=== PATIENT | female | born 1995 | race Caucasian/White ===

== ENCOUNTER → 2020-09-01 16:20 | Outpatient (BNVA) | payer MEDICARE, MEDICAID, SELFPAY | PROVIDERS: Family Provider Nurse Practitioner; PCP Nurse Practitioner Family; Visit Provider Nurse Practitioner Family | DX: Z11.59 Encounter for screening for other viral diseases (principal); Z20.828 Contact with and (suspected) exposure to other viral communicable diseases; J22 Unspecified acute lower respiratory infection | CPT/HCPCS: 87635 ==

== ENCOUNTER 2020-11-10 12:58 | Emergency (ER) | payer MEDICARE, MEDICAID, SELFPAY ==
[2020-11-10 13:02] VITALS: BP 104/71; PULSE 61; RESP 16; TEMP 36.6; O2SAT 97; BMI 37.6
--- NOTE | 2020-11-10 15:35 | XR_ITS ---
WS: [id number] KUMonica, 11/10/2020 Clinical Data: Vomiting Comparison: None. Findings: No abnormal intraabdominal masses or calcifications are seen. There is no dilatated small bowel or ev idence of obstruction. There is a moderate amount of fecal material throughout the colon. XR/XR KUB portable [id number] Impression: Moderate amount of fecal material in the colon.
--- NOTE | 2020-11-10 15:37 | W.ED.NECK ---
HPI - Neck Pain/Injury General: Chief Complaint: Neck Pain/Injury Stated Complaint: back pain/vomiting Time Seen by Provider: 11/10/20 15:30 Source: patient, family, RN notes reviewed and old records reviewed Mode of arrival: ambulatory Limitations: no limitations History of Present Illness: HPI Narrative: This patient presents to the emergency department is a 24-year-old female with complaint of nausea vomiting for the past 3 days denies diarrhea denies any significant abdominal pain. Patient says for the past days has had significant musculoskeletal type pain in the posterior neck. So much so that she was seen at [facility] in [place] yesterday and did receive a pain shot. Patient stated only helped her neck pain for throughout the night. But now significant pain again and still nauseated. Patient states that she has had no fever. We will do medical evaluation treat as needed. complaint: neck pain and upper back pain Onset (ago): day(s) Radiation: occiput Severity: mild and similar to prior neck pain Relieving factors: none Associated symptoms: Reports nausea; Denies headache(s) Review of Systems General: Reports: 10 or more systems reviewed and unremarkable except in HPI and below Const: Denies: fever(s), chills, body aches, change in appetite, fatigue or malaise Eyes: Denies: change in vision, eye discomfort, eye discharge or eye redness ENMT: Denies: throat pain, odynophagia or mouth pain Card: Denies: chest pain, palpitations, irregular heart rhythm or edema Resp: Denies: dyspnea, productive cough, non-productive cough, wheezing, stridor or pain on inspiration GI: Reports: nausea and vomiting; Denies: abdominal pain : Denies: flank pain, difficulty voiding or dysuria Musc: Reports: neck pain and back pain; Denies: extremity pain, extremity swelling or joint swelling Skin/Breast: Denies: rash, pruritus or erythema Neuro: Denies: headache(s), numbness in extremities, weakness in extremities or sensory changes Psych: Denies: anxiety or depression Endo: Denies: polyuria or polydipsia PFS ED PFSH: Medical History Close exposure to 2019 novel coronavirus Lower respiratory infection Family History Other CAD (coronary artery disease) Cancer Diabetes Social History Smoking and tobacco status: current some day smoker Alcohol intake: current Alcohol intake frequency: holidays/special occasions only Physical Exam Const: COMMON NORMALS: no acute distress, average body habitus, patient oriented x3, no limitations, healthy appearing, alert and well nourished HENMT: COMMON NORMALS: normocephalic, atraumatic, hearing grossly normal bilaterally, external ears normal, EAC's normal, TM's normal bilaterally, Normal external nose present, Normal nasal mucous membranes and turbinates present, moist oral mucous membranes, oropharynx normal, dentition normal and gingiva normal HEAD & SCALP: normocephalic and atraumatic NOSE: Normal external nose present and Normal nasal mucous membranes and turbinates present EXTERNAL EAR: Yes external ears normal EXTERNAL AUDITORY CANAL: EAC's normal TYMPANIC MEMBRANE: TM's normal bilaterally Neck/C-Spine: COMMON NORMALS: full ROM, no lymphadenopathy, supple, no meningeal signs, no JVD, Thyroid normal and No carotid bruits GENERAL: Yes normal visual inspection THYROID: Thyroid normal CERVICAL SPINE: Yes Paracervical muscle tenderness NECK IMAGES: 1. Tenderness on palpation only full range of motion. 2. Tender to palpation only full range of motion without difficulty. Cardio: COMMON NORMALS: no JVD Neuro: COMMON NORMALS: patient oriented x3 SENSORIUM/ORIENTATION: Yes alert MENINGEAL SIGNS: Yes no meningeal signs Course Vital Signs: Vital signs: Vital Signs Temperature 97.9 F 11/10/20 13:02 Pulse Rate 62 11/10/20 17:03 Respiratory Rate 16 11/10/20 13:02 Blood Pressure 111/72 11/10/20 17:03 Pulse Oximetry 100 11/10/20 17:03 MDM - Neck Pain/Injury Differential Diagnosis: Neck Differential Diagnosis: Likely disc disorder of cervical region, torticollis and strain of neck muscle Medical Records: Attestation: I reviewed the patient's medical records. Lab Data: Attestation: I reviewed the patient's lab results. Labs: Lab Results 11/10/20 11/10/20 11/10/20 Range/Units 15:55 15:55 15:55 WBC 7.5 (4.0-10.0) 10^3/ uL RBC 4.98 (4.1-5.3) 10^6/u L Hgb 14.4 (11.5-15.3) g/dL Hct 44.3 (37.0-47.0) % MCV 89.0 (81-99) fL MCH 28.9 (28.0-34.0) pg MCHC 32.5 (30.0-36.0) g/dL RDW 13.3 (12.1-15.1) % Plt Count 267 (130-400) 10^3/c mm MPV 9.2 (7.4-10.4) fL Neut % (Auto) 66.5 % Lymph % (Auto) 24.1 % [place] % (Auto) 6.7 % Eos % (Auto) 1.5 % Baso % (Auto) 1.1 % Neut # (Auto) 4.96 (1.8-7.7) 10^3/u L Lymph # (Auto) 1.8 (0.8-4.8) 10^3/u L [place] # (Auto) 0.5 (0.2-0.9) 10^3/u L Eos # (Auto) 0.1 (0.0-0.8) 10^3/u L Baso # (Auto) 0.1 (0.0-0.1) 10^3/u L Nucleated RBC % (a uto) 0 % Nucleated RBCs # 0.0 /100WBC Sodium 140 (136-145) mmol/L Potassium 4.0 (3.5-5.1) mmol/L Chloride 103 (98-107) mmol/L Carbon Dioxide 27 (22-29) mmol/L Anion Gap 14.0 (5-19) BUN 14 (6-20) mg/dL Creatinine 0.9 (0.5-0.9) mg/dL GFR Calculation 76.9 L (90-130) mL/min Glucose 83 (65-115) mg/dL Calculated Osmolal ity 290 (285-295) mOsm/k g Calcium 9.3 (8.5-10.5) mg/dL Total Bilirubin 0.3 (0.15-1.2) mg/dL AST 20 (0-32) U/L ALT 22 (0-33) U/L Alkaline Phosphata se 88 (35-105) IU/L C-Reactive Protein 7.4 H (0.0-4.9) mg/L Total Protein 7.2 (6.6-8.7) g/dL Albumin 4.3 (3.5-5.2) g/dL Globulin 2.9 (1.3-4.6) g/dL Lipase 29 (13-60) U/L HCG, Qual Negative (Negative) Urine Color (Yellow) Urine Appearance (CLEAR) Urine pH (5-7) Ur Specific Gravit y (1.005-1.030) Urine Protein (Negative) Urine Glucose (UA) (Normal) Urine Ketones (Negative) Urine Blood (Negative) Urine Nitrate (Negative) Urine Bilirubin (Negative) Urine Urobilinogen (Negative) mg/dL Ur Leukocyte Jyoti ase (Negative) Urine RBC (0-2) /hpf Urine WBC (0-5) /hpf Ur Squamous Epith Cells (0-5) /hpf Amorphous Sediment Urine Bacteria (NONE) /hpf Urine Opiates Scre en (Negative) ng/mL Ur Barbiturates Sc reen (Negative) ng/mL Ur Phencyclidine S crn (Negative) ng/mL Ur Amphetamines Sc reen (Negative) ng/mL U Benzodiazepines Scrn (Negative) ng/mL Urine Cocaine Scre en (Negative) ng/mL U Marijuana (THC) Screen (Negative) ng/mL 11/10/20 11/10/20 11/10/20 Range/Units 17:04 17:04 17:04 WBC (4.0-10.0) 10^3/ uL RBC (4.1-5.3) 10^6/u L Hgb (11.5-15.3) g/dL Hct (37.0-47.0) % MCV (81-99) fL MCH (28.0-34.0) pg MCHC (30.0-36.0) g/dL RDW (12.1-15.1) % Plt Count (130-400) 10^3/c mm MPV (7.4-10.4) fL Neut % (Auto) % Lymph % (Auto) % [place] % (Auto) % Eos % (Auto) % Baso % (Auto) % Neut # (Auto) (1.8-7.7) 10^3/u L Lymph # (Auto) (0.8-4.8) 10^3/u L [place] # (Auto) (0.2-0.9) 10^3/u L Eos # (Auto) (0.0-0.8) 10^3/u L Baso # (Auto) (0.0-0.1) 10^3/u L Nucleated RBC % (a uto) % Nucleated RBCs # /100WBC Sodium (136-145) mmol/L Potassium (3.5-5.1) mmol/L Chloride (98-107) mmol/L Carbon Dioxide (22-29) mmol/L Anion Gap (5-19) BUN (6-20) mg/dL Creatinine (0.5-0.9) mg/dL GFR Calculation (90-130) mL/min Glucose (65-115) mg/dL Calculated Osmolal ity (285-295) mOsm/k g Calcium (8.5-10.5) mg/dL Total Bilirubin (0.15-1.2) mg/dL AST (0-32) U/L ALT (0-33) U/L Alkaline Phosphata se (35-105) IU/L C-Reactive Protein (0.0-4.9) mg/L Total Protein (6.6-8.7) g/dL Albumin (3.5-5.2) g/dL Globulin (1.3-4.6) g/dL Lipase (13-60) U/L HCG, Qual Negative (Negative) Urine Color Yellow (Yellow) Urine Appearance Hazy A (CLEAR) Urine pH 5 (5-7) Ur Specific Gravit y 1.015 (1.005-1.030) Urine Protein Neg (Negative) Urine Glucose (UA) Norm (Normal) Urine Ketones Negative (Negative) Urine Blood Neg (Negative) Urine Nitrate Negative (Negative) Urine Bilirubin Neg (Negative) Urine Urobilinogen Norm (Negative) mg/dL Ur Leukocyte Jyoti ase Negative (Negative) Urine RBC 0-4 H (0-2) /hpf Urine WBC None (0-5) /hpf Ur Squamous Epith Cells 15-25 H (0-5) /hpf Amorphous Sediment Not Reportable Urine Bacteria 1+ H (NONE) /hpf Urine Opiates Scre en Negative (Negative) ng/mL Ur Barbiturates Sc reen Negative (Negative) ng/mL Ur Phencyclidine S crn Negative (Negative) ng/mL Ur Amphetamines Sc reen Negative (Negative) ng/mL U Benzodiazepines Scrn Negative (Negative) ng/mL Urine Cocaine Scre en Negative (Negative) ng/mL U Marijuana (THC) Screen Positive H (Negative) ng/mL Imaging Data^: KUB: Attestation: I personally reviewed and interpreted this imaging study as follows: My impression: Constipation Radiologist's impression: mpression: Moderate amount of fecal material in the colon. Discharge Plan Discharge Clinical Impression: Constipation, Strain of neck muscle Condition: Stable Prescriptions: New diclofenac potassium 50 mg tablet 50 mg PO Q12H PRN (Reason: pain) Qty: 20 RF: 0 No Action estradiol 1 mg Tablet 1 mg PO DAILY@07 RF: 0 Discharge Orders: Discharge ED (Routine); Ordered 11/10/20 Ordered By: Young Valero Discharge Diet: Advance as tolerated Discharge Activity: Resume usual activity Patient Instructions: Constipation - Adult, Cervical Sprain (ED) Activity Restrictions/Additional Instructions: Encourage p.o. fluids. Take medications as instructed. Follow-up with your primary care physician for any additional pain medications. Kmol-zuv-rhstdvo MiraLAX as needed for constipation. Coding Level of Care Code ED [employer] for [employer] Fwd Exam Expanded Problem Focused
[2020-11-10 15:41] VITALS: BP 136/72; PULSE 59; O2SAT 97; O2SAT 99
[2020-11-10 16:09] LABS: Basophils # 0.1 10^3/uL (0.0-0.1); Basophils % 1.1 %; Eosinophils # 0.1 10^3/uL (0.0-0.8); Eosinophils % 1.5 %; Hematocrit 44.3 % (37.0-47.0); Hemoglobin 14.4 g/dL (11.5-15.3); Lymphocytes # 1.8 10^3/uL (0.8-4.8); Lymphocytes % 24.1 %; Mean Corpuscular HGB Conc 32.5 g/dL (30.0-36.0); Mean Corpuscular Hemoglobin 28.9 pg (28.0-34.0); Mean Platelet Volume 9.2 fL (7.4-10.4); Monocytes # 0.5 10^3/uL (0.2-0.9); Monocytes % 6.7 %; Neutrophils # 4.96 10^3/uL (1.8-7.7); Neutrophils % 66.5 %; Nucleated Red Blood Cells % 0 %; Platelet Count 267 10^3/cmm (130-400); Red Blood Count 4.98 10^6/uL (4.1-5.3); Red Cell Distribution Width 13.3 % (12.1-15.1); White Blood Count 7.5 10^3/uL (4.0-10.0)
[2020-11-10] MEDS: ondansetron 2 mg/ML SDV 2 mL 4 MG IVP (16:09)
[2020-11-10] MEDS: sodium chloride 0.9% 500 ML IV (16:09)
[2020-11-10] MEDS: ketorolac 30 mg/mL INJ IVP (16:10)
[2020-11-10 16:34] LABS: Alanine Aminotransferase 22 U/L (0-33); Albumin Level 4.3 g/dL (3.5-5.2); Alkaline Phosphatase 88 IU/L (35-105); Aspartate Amino Transferase 20 U/L (0-32); Blood Urea Nitrogen 14 mg/dL (6-20); C Reactive Protein 7.4 mg/L (0.0-4.9); Calcium 9.3 mg/dL (8.5-10.5); Carbon Dioxide 27 mmol/L (22-29); Chloride 103 mmol/L (98-107); Globulin 2.9 g/dL (1.3-4.6); Glomerular Filtration Rate 76.9 mL/min (90-130); Glucose 83 mg/dL (65-115); Lipase 29 U/L (13-60); Osmolality Calculated 290 mOsm/kg (285-295); Sodium 140 mmol/L (136-145); Total Bilirubin 0.3 mg/dL (0.15-1.2); Total Protein 7.2 g/dL (6.6-8.7)
[2020-11-10 16:38] LABS: HCG, Serum Qual Negative (Negative)
[2020-11-10 17:03] VITALS: BP 111/72; PULSE 62; O2SAT 100
[2020-11-10 17:29] LABS: Amphetamines Screen Urine Negative (Negative); Barbiturates Screen Urine Negative (Negative); Benzodiazepines Screen Urine Negative (Negative); Cocaine Screen Urine Negative (Negative); Opiate Screen Urine Negative (Negative); PCP Screen Urine Negative (Negative); THC Screen Urine Positive (Negative)
[2020-11-10 17:30] LABS: HCG Qualitative Urine. Negative (Negative)
[2020-11-10 17:33] LABS: Add Urine Microscopic? YES; Bilirubin Urine Neg (Negative); Blood Urine Neg (Negative); Glucose Urine UA Norm (Normal); Ketones Urine Negative (Negative); Leukocyte Esterase Urine Negative (Negative); Nitrate Urine Negative (Negative); Protein Urine Neg (Negative); Specific Gravity, Urine 1.015 (1.005-1.030); Urine Appearance Hazy (CLEAR); Urine Color Yellow (Yellow); Urobilinogen Urine Norm (Negative); pH Urine 5 (5-7)
[2020-11-10 17:38] LABS: Add Urine Culture? No; Bacteria Urine 1+ /hpf; RBC Urine 0-4 /hpf (0-2); Squamous Epithelial Cell Urine 15-25 /hpf (0-5)
[2020-11-10 17:48] VITALS: BP 134/99; PULSE 60; O2SAT 98
== END 2020-11-10 17:50 | disposition home or self-care (01) ==
PROVIDERS: Emergency Provider Emergency Medicine
DX: S16.1XXA Strain of muscle, fascia and tendon at neck level, initial encounter (principal); K59.00 Constipation, unspecified; F17.210 Nicotine dependence, cigarettes, uncomplicated; X58.XXXA Exposure to other specified factors, initial encounter
CPT/HCPCS: 12345; 74018; 80053; 80306; 81001; 81025; 83690; 84703; 85025; 86140; 96361; 96374; 96375; 99283; J1885; J2405; J7040

== ENCOUNTER → 2021-04-14 16:45 | Outpatient (BNVA) | payer MEDICARE, MEDICAID, SELFPAY | PROVIDERS: Visit Provider Nurse Practitioner Family | DX: Z20.822 Contact with and (suspected) exposure to COVID-19 (principal) | CPT/HCPCS: 87635 ==

== ENCOUNTER → 2021-10-25 16:26 | Outpatient (BNVA) | payer MEDICARE, MEDICAID, SELFPAY | PROVIDERS: Visit Provider Family Medicine | DX: R05.9 Cough, unspecified (principal) | CPT/HCPCS: 87400; 87880 ==

== ENCOUNTER → 2022-08-07 15:35 | Outpatient (BNVA) | payer MEDICARE, MEDICAID, SELFPAY | PROVIDERS: PCP Nurse Practitioner Family; Visit Provider Nurse Practitioner | DX: M79.672 Pain in left foot (principal) | CPT/HCPCS: 73620 ==

== ENCOUNTER → 2023-07-25 11:07 | Outpatient (BNVA) | payer MEDICARE, MEDICAID, SELFPAY | PROVIDERS: Visit Provider Obstetrics & Gynecology | DX: R10.31 Right lower quadrant pain (principal); Z90.710 Acquired absence of both cervix and uterus | CPT/HCPCS: 76857 ==

== ENCOUNTER 2023-10-08 08:13 | Day surgery (SDC) | payer MEDICARE, MEDICAID, SELFPAY ==
[2023-10-04 13:16] LABS: Basophils # 0.1 10^3/uL (0.0-0.1); Basophils % 1.1 %; Eosinophils # 0.2 10^3/uL (0.0-0.8); Eosinophils % 2.2 %; Hematocrit 44.3 % (36-47); Lymphocytes # 1.7 10^3/uL (0.8-4.8); Lymphocytes % 22.5 %; Mean Corpuscular Hemoglobin 30.2 pg (27-33); Mean Corpuscular Volume 91.5 fl (85-98); Monocytes # 0.5 10^3/uL (0.2-0.9); Monocytes % 6.5 %; Neutrophils # 5.03 10^3/uL (1.8-7.7); Neutrophils % 67.6 %; Nucleated Red Blood Cells % 0 %; Platelet Count 279 10^3/cmm (157-399); Red Blood Count 4.84 10^6/uL (3.85-5.65); Red Cell Distribution Width 13.1 % (12.1-15.1); White Blood Count 7.43 10^3/uL (3.29-11.43)
--- NOTE | 2023-10-04 13:20 | P.ANESASSM_ITS ---
Pre-Anesthetic Assessment Height/Weight: Height 1.45 m Operation Date: 10/08/23 08:40 Proposed Procedures p Diagnostic laparoscopy 14343,R10.2(Not Applicable) - Livan Barry MD Familial anesthetic complications: None Social No alcohol and No tobacco former smoker Exam alert, oriented x 3, clear to auscultation bilaterally and regular rate & rhythm Pulmonary None reported CV/HEM None reported None reported Hepatic None reported GI None reported Metabolic None reported Anesthetic Plan ASA status: 2 Anesthesia: General Risk of > 500 ml blood loss (7ml/kg in children): No Medications/Allergies Home Medications Medication Instructions Recorded Confirmed Last Taken Type acetaminophen 325 mg capsule 325 mg PO QID PRN Pain 07/08/23 10/04/23 Unknown History (Tylenol) estradiol 1 mg tablet 1 mg PO DAILY 10/04/23 10/04/23 10/04/23 History Allergies Allergy/AdvReac Type Severity Reaction Status Date / Time hydrocodone Allergy vomiting Verified 09/30/23 08:27 and diarrhea Opioids - Morphine Analogues Allergy vomiting Verified 09/30/23 08:27 and diarrhea PFSH Anesthesia Medical History Close exposure to 2019 novel coronavirus Lower respiratory infection Surgical History Status post ovarian cystectomy H/O ovarian cystectomy H/O: hysterectomy 03/09/2019- per Dr. Michel, [place], [place] robotic-assisted ovariolysis, sapingolysis, robotic assisted total laparoscopic hysterectomy, left salpingo oophorectomy Family History Grandmother Breast cancer maternal, onset unknown Diabetes paternal Hypertension paternal Stroke paternal Heart disease paternal Family/Other Heart disease paternal uncle Father Heart disease Other CAD (coronary artery disease) Cancer Denies family history of Colon cancer Ovarian cancer Clotting disorder Hyperlipidemia Anesthesia complication Bleeding disorder Uterine cancer Thyroid disease Social History Smoking and tobacco/nicotine status: current every day tobacco/nicotine user (0.25-0.5 ppd ) Substance/Drug Use: never Data Anesthesia 10/04/23 13:00 10/04/23 13:00 Short CBC 10/04/23 Range/Units 13:00 WBC 7.43 (3.29-11.43) 10^3/uL Hgb 14.60 (11.27-16.99) g/dL Hct 44.3 (36-47) % MCV 91.5 (85-98) fl Plt Count 279 (157-399) 10^3/cmm Neut % (Auto) 67.6 % Neut # (Auto) 5.03 (1.8-7.7) 10^3/uL Cardiac Studies: 2 No Data to Display
[2023-10-08] VITALS (10 sets, daily range): BP systolic 105–148; BP diastolic 62–96; PULSE 60–103; RESP 14–16; TEMP 36.1–36.6; O2SAT 93–100; BMI 32.4
--- NOTE | 2023-10-08 09:07 | W.PM.OPSUD ---
Surgery/Procedure H&P Update DATE OF PROCEDURE: October 08, 2023 DATE H&P PERFORMED: 09/30/23 H&P UPDATE INFORMATION: I have reviewed H&P completed within last 30 days, I have examined patient prior to procedure and No changes to prior documentation PREOP DIAGNOSIS: pelvic pain PLANNED PROCEDURE: Operation Date: 10/08/23 09:50 Proposed Procedures p Diagnostic laparoscopy 94657,R10.2(Not Applicable) - Livan Barry MD
[2023-10-08] MEDS: sodium chloride 0.9% 500 ML IV (09:20)
--- NOTE | 2023-10-08 09:20 | P.ANESUD_ITS ---
Pre-Anesthetic Update Pre-Anesthetic Assessment: Date of Surgery/Procedure: 10/08/23 Preop Mary gnosis: pelvic pain Proposed Procedure: Operation Date: 10/08/23 09:50 Proposed Procedures p Diagnostic laparoscopy 31626,R10.2(Not Applicable) - Livan Barry MD Any changes to Pre-Anesthetic Assessment?: No Last Intake: Intake Last Liquid Date 10/07/23 Last Liquid Time 17:00 Last Solid Date 10/07/23 Last Solid Time 17:00 Vitals: Temperature 97.4 F L 10/08/23 08:37 Temperature Source Temporal Artery S can 10/08/23 08:37 Pulse Rate 60 10/08/23 08:37 Pulse Rhythm Regular 10/08/23 08:38 Pulse Strength 3+ Normal 10/08/23 08:38 Respiratory Rate 16 10/08/23 08:37 Blood Pressure 106/62 10/08/23 08:37 Blood Pressure Frannie n 76 10/08/23 08:37 Pulse Oximetry 98 10/08/23 08:37 Oxygen Delivery Me thod Room Air 10/08/23 08:38 Exam: Pre-Anes Outpt Exam: alert, oriented x 3, clear to auscultation bilaterally and regular rate & rhythm Cardiac Studies: No Data to Display
[2023-10-08] MEDS: ceFAZolin 2,000 MG in sodium chloride 0.9% (plus) 50 ML 100 MG IV (09:21)
[2023-10-08] MEDS: BUPivacaine 0.5% INJ 30 mL INJECTION (09:49)
[2023-10-08 09:50] LABS: Alanine Aminotransferase 22 U/L (0-33); Albumin Level 4.5 g/dL (3.5-5.2); Alkaline Phosphatase 83 U/L (35-105); Anion Gap 14.9 (5-19); Aspartate Amino Transferase 18 U/L (0-32); Blood Urea Nitrogen 13 mg/dL (6-20); Calcium 9.4 mg/dL (8.5-10.5); Carbon Dioxide 24 mmol/L (22-29); Chloride 106 mmol/L (98-107); Globulin 3.1 g/dL (1.3-4.6); Glucose 90 mg/dL (65-115); Osmolality Calculated 292 mOsm/kg (285-295); Potassium 3.9 mmol/L (3.5-5.1); Sodium 141 mmol/L (136-145); Total Bilirubin 0.3 mg/dL (0.15-1.2); Total Protein 7.6 g/dL (6.6-8.7)
[2023-10-08 09:51] LABS: Add Urine Culture? No; Add Urine Microscopic? YES; Bacteria Urine 1+ /hpf; Bilirubin Urine Neg (Negative); Blood Urine Neg (Negative); Glucose Urine UA Norm (Normal); Ketones Urine 1+ (Negative); Leukocyte Esterase Urine 1+ (Negative); Nitrate Urine Negative (Negative); Protein Urine Neg (Negative); RBC Urine 0-4 /hpf (0-2); Urine Appearance SL Hazy (CLEAR); Urine Color Yellow (Yellow); Urobilinogen Urine Norm (Negative); pH Urine 5 (5-7)
[2023-10-08] MEDS: sodium chloride 0.9% 1,000 ML 30 ML IV (09:51)
--- NOTE | 2023-10-08 10:31 | P.OP_ITS ---
Operative Report Date of procedure: October 08, 2023 Pre-op diagnosis: Chronic pelvic pain Post-op diagnosis: Same Procedure done: Diagnostic laparoscopy Lysis of adhesions Surgeon: Livan Barry MD Estimated blood loss (mL): 5 IV fluids (mL): 800 Urine output (mL): 100 Complications: None Findings: Omental adhesions to anterior abdominal wall Procedure: After informed consent, the patient was taken to the operating room where general anesthesia was administered. The patient was examined under anesthesia and found to have a normal uterus with normal adnexa. She was placed in the dorsal lithotomy position and prepped and draped in sterile fashion. Pre- Procedure Time-Out verifying the correct patient identity, correct procedure verified with consent, correct site and side, correct patient position, availability of correct implants and any special equipment or requirements was performed and acknowledge by the OR team. A weighted speculum was placed in the vagina, and the anterior lip of cervix was grasped with the single toothed tenaculum. A uterine manipulator was advanced into the endocervical. Tenaculum was removed after uterine manipulator was secured. The speculum was removed from the vagina. An intraumbilical incision was made with a scalpel. While tenting up on the abdomen, a Verres needle with sleeve was admitted into the intra-abdominal cavity. A saline drop test was performed and noted to be within normal limits. Pneumoperitoneum was attained with 4 liters of carbon dioxide. The Verres needle was removed. A 5 mm trocar and sleeve were admitted into the abdomen and laparoscopic confirmation of location was achieved, A second incision was made 3 cm above the symphysis pubis, and a 5 mm trocar and sleeve were admitted into the abdomen under direct, laparoscopic visualization without complication. A survey revealed omental adhesions to anterior abdominal wall. The pelvic naqvi rvey was not possible due to adhesions. Then a 5 mm Lige sure device was advanced through the suprapubic port. The omental adhesions were lysed. Then a 5 mm blunt probe was advanced through the second trocar sleeve, and light manipulation of bowel to assess the cul-de-sac aspects was performed after lysis of adhesions. Good hemostasis was noted. The carbon dioxide was allowed to escape from the abdomen. The instruments were removed, and skin cover with a bandage. The instruments were removed from the vagina, and excellent hemostasis was noted. The patient tolerated the procedure well, and sponge, lap and needle count were correct times two. The patient taken to the recovery room in good condition.
--- NOTE | 2023-10-08 13:33 | ANE.PACU2 ---
Inpatient post-anesthesia follow up: Airway intact: Yes Vital signs: Temperature 97.9 F Pulse Rate 61 Respiratory Rate 16 Blood Pressure 111/83 Pulse Oximetry 97 Oxygen Delivery Me thod Room Air Oxygen Flow Rate 6 Fraction of Inspir ed Oxygen Hydration adequate: Yes Nausea and vomiting: No Pain level: 3 Mental status: Baseline
== END 2023-10-08 12:05 | disposition home or self-care (01) ==
PROVIDERS: Visit Provider Obstetrics & Gynecology
PROC: (CPT 49320; principal; 2023-10-08 09:40)
PROC: (CPT 49320; 2023-10-08 09:40)
DX: R10.2 Pelvic and perineal pain (principal); G89.29 Other chronic pain; K66.0 Peritoneal adhesions (postprocedural) (postinfection); F17.210 Nicotine dependence, cigarettes, uncomplicated
CPT/HCPCS: 49320; 36415; 51702; 80053; 81001; 85025; 86850; 86900; J0690; J1100; J2250; J2405; J2704; J2710; J3010; J3490; J7030; J7040

== ENCOUNTER 2024-05-25 09:51 | Outpatient (CLI) | payer MEDICARE, MEDICAID, SELFPAY ==
--- NOTE | 2024-05-25 09:53 | XR_ITS ---
WS: [id number] XR thoracic spine 2V [id number] REASON FOR EXAM: M54.6 - Pain in thoracic spine FINDINGS: There is a mild/moderate levoscoliosis of the thoracic spine between C1 and T5. 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 Below T5 to the thoracolumbar juncture there is a mild levoscoliosis . On the lateral view there is straightening of the thoracic spine. The disc spaces are intact and relatively well preserved. No vertebral body lesion or compression deformity. XR/XR thoracic spine 2V [id number] IMPRESSION: Thoracic scoliosis as above which appears to be due to congenital fusion of T3- T4.
--- NOTE | 2024-05-25 09:53 | XR_ITS ---
WS: [id number] XR cervical spine min 6V [id number] REASON FOR EXAM: M54.2 - Cervicalgia FINDINGS: There is straightening of the normal lordosis of the cervical spine. There is a slight dextroscoliosis of the lower cervical spine. Contiguous with the levoscoliosis of t he upper thoracic spine. No significant vertebral body abnormality. Disc spaces are intact and well preserved. No significant neutral listhesis and no significant abnormal movement of the cervical vertebral melita s with flexion and or extension. XR/XR cervical spine min 6V [id number] IMPRESSION: Abnormal cervical spine curvatures as above.
--- NOTE | 2024-05-25 10:00 | US_ITS ---
WS: [id number] Complete ABDOMINAL ULTRASOUND HISTORY: R10.9 - Unspecified abdominal pain COMPARISON: None available. Quality is compromised by body habitus. Liver: 12.4 cm in length. Liver is normal size. Mild hepatic steatosis. No mass. Portal Vein: Normal hepatopetal flow with monophasic waveform. Gallbladder: Normally distended gallbladder with no stones or wall thickening. CBD: 0.2 cm Pancreas: Obscured by bowel gas. Right kidney: 9.1 cm x 3.1 x 3.3 cm. Cortex:1.0 cm. Normal size and echogenicity. No hydronephrosis or mass. Left kidney: 9.2 cm x 3.4 cm x 3.6 cm. Cortex: 1.0 cm. Normal size and echogenicity. No hydronephrosis or mass. Spleen: 9.0 cm. Normal size and echogenicity. Aorta and IVC: Unremarkable abdominal aorta and IVC. US/US abdomen complete* [id number] Impression: 1. Negative gallbladder. 2. Mild hepatic steatosis. 3. No renal obstruction. 4. Nonvisualized pancreas.
== END 2024-05-25 09:52 | disposition home or self-care (01) ==
LOC: RAD 09:52
PROVIDERS: PCP Nurse Practitioner Family; Visit Provider Nurse Practitioner Family
DX: Q76.49 Other congenital malformations of spine, not associated with scoliosis (principal); M41.86 Other forms of scoliosis, lumbar region; R10.9 Unspecified abdominal pain
CPT/HCPCS: 72052; 72070; 76700

== ENCOUNTER 2024-06-16 06:00 | Outpatient (RCR) | payer MEDICARE, MEDICAID, SELFPAY | END 2024-06-20 18:00 | disposition home or self-care (01) | LOC: WPT 06:00 | PROVIDERS: Visit Provider Nurse Practitioner Family | DX: M54.9 Dorsalgia, unspecified (principal); G89.29 Other chronic pain | CPT/HCPCS: 97110; 97112; 97140; 97161; 97530 ==

== ENCOUNTER 2024-06-21 06:00 | Outpatient (RCR) | payer MEDICARE, MEDICAID, SELFPAY | END 2024-07-20 23:59 | disposition home or self-care (01) | LOC: WPT 06:00 | PROVIDERS: Visit Provider Nurse Practitioner Family | DX: M54.9 Dorsalgia, unspecified (principal); G89.29 Other chronic pain | CPT/HCPCS: 97110; 97112; 97140; 97530 ==

== ENCOUNTER 2024-07-21 06:00 | Outpatient (RCR) | payer MEDICARE, MEDICAID, SELFPAY | END 2024-08-20 23:59 | disposition home or self-care (01) | LOC: WPT 06:00 | PROVIDERS: Visit Provider Nurse Practitioner Family | DX: M54.9 Dorsalgia, unspecified (principal); G89.29 Other chronic pain | CPT/HCPCS: 97110; 97112; 97140; 97530 ==

== ENCOUNTER → 2024-09-08 11:17 | Outpatient (BNVA) | payer MEDICARE, MEDICAID, SELFPAY | PROVIDERS: PCP Nurse Practitioner Family; Visit Provider Nurse Practitioner Family | DX: M25.442 Effusion, left hand (principal) | CPT/HCPCS: 73130 ==

== ENCOUNTER → 2025-02-11 11:24 | Outpatient (BNVA) | payer MEDICARE, MEDICAID, SELFPAY | PROVIDERS: PCP Nurse Practitioner Family; Visit Provider Nurse Practitioner Family | DX: S96.911A Strain of unspecified muscle and tendon at ankle and foot level, right foot, initial encounter (principal); K76.0 Fatty (change of) liver, not elsewhere classified; Z13.6 Encounter for screening for cardiovascular disorders; Z79.899 Other long term (current) drug therapy; X58.XXXA Exposure to other specified factors, initial encounter | CPT/HCPCS: 73630; 80053; 80061; 81003; 83036; 84439; 84443; 84550; 85025; 85651; 86140 ==

== ENCOUNTER → 2025-02-15 12:43 | Outpatient (BNVA) | payer MEDICARE, SELFPAY | PROVIDERS: PCP Nurse Practitioner Family; Visit Provider Podiatrist Foot & Ankle Surgery | DX: M65.971 Unspecified synovitis and tenosynovitis, right ankle and foot (principal) | CPT/HCPCS: 99203 ==

== ENCOUNTER → 2025-03-22 14:40 | Outpatient (BNVA) | payer MEDICARE, SELFPAY | PROVIDERS: PCP Nurse Practitioner Family; Visit Provider Podiatrist Foot & Ankle Surgery | DX: Z09 Encounter for follow-up examination after completed treatment for conditions other than malignant neoplasm (principal) | CPT/HCPCS: 99213 ==

== ENCOUNTER → 2025-07-13 10:32 | Outpatient (BNVA) | payer MEDICARE, MEDICAID, SELFPAY | PROVIDERS: PCP Nurse Practitioner Family; Visit Provider Nurse Practitioner Family | DX: R10.31 Right lower quadrant pain (principal); N20.0 Calculus of kidney | CPT/HCPCS: 74018; 80053; 81003; 85025; 85651; 86140 ==

== ENCOUNTER 2025-08-18 11:00 | Outpatient (RCR) | payer MEDICARE, MEDICAID, SELFPAY | END 2025-08-20 23:59 | disposition home or self-care (01) | LOC: WPT 11:00 | PROVIDERS: PCP Nurse Practitioner Family; Visit Provider Nurse Practitioner Family | DX: M54.9 Dorsalgia, unspecified (principal); G89.29 Other chronic pain | CPT/HCPCS: 97110; 97112; 97161; 97530 ==

== ENCOUNTER 2025-09-07 07:54 | Outpatient (RCR) | payer MEDICARE, MEDICAID, SELFPAY | END 2025-09-19 23:59 | disposition home or self-care (01) | LOC: WPT 07:54 | PROVIDERS: PCP Nurse Practitioner Family; Visit Provider Nurse Practitioner Family | DX: M54.9 Dorsalgia, unspecified (principal); G89.29 Other chronic pain | CPT/HCPCS: 97110; 97112; 97530 ==